=== PATIENT | male | born 1965 | race Two or more races ===

== ENCOUNTER 2024-02-20 22:45 | Emergency (ER) | payer OTHER ==
[~2024-02-20] VITALS: Ht 162.6 cm; Wt 67.1 kg
[2024-02-20] MEDS ORDERED: KETOROLAC TROMETHAMINE 30 MG INJ ONE (23:36)
[2024-02-20] MEDS ORDERED: ACETAMINOPHEN 500 MG TABLET ONE (23:36)
[2024-02-20] MEDS ORDERED: GUAIFENESIN/CODEINE 5 ML LIQUID UDC ONE (23:37)
[2024-02-20 23:40] LABS: BASOPHILS # (AUTO) 0.1 K/UL (0.0-0.2); BASOPHILS % (AUTO) 1.3 % (0.0-2.0); EOSINOPHILS % (AUTO) 0.5 % (0.0-7.0); HEMATOCRIT 44.4 % (36.7-47.1); HEMOGLOBIN 14.8 g/dL (12.5-16.3); LYMPHOCYTES # (AUTO) 0.5 K/uL (0.8-4.8); LYMPHOCYTES % (AUTO) 6.4 % (20.5-51.5); MEAN CORPUSCULAR HEMOGLOBIN 30.2 uug (23.8-33.4); MEAN CORPUSCULAR HGB CONC 33 g/dL (32.5-36.3); MEAN CORPUSCULAR VOLUME 90.3 fL (73.0-96.2); MONOCYTES # (AUTO) 0.5 K/uL (0.1-1.30); MONOCYTES % (AUTO) 5.9 % (0.0-11.0); NEUTROPHILS # (AUTO) 7.3 K/uL (1.8-8.9); NEUTROPHILS % (AUTO) 85.9 % (38.5-71.5); PLATELET COUNT (AUTO) 176 K/uL (152-348); RED BLOOD CELL COUNT(AUTO) 4.92 MIL/uL (4.06-5.63); RED CELL DISTRIBUTION WIDTH 13.3 % (12.1-16.2); WHITE BLOOD COUNT (AUTO) 8.5 K/uL (3.6-10.2)
[2024-02-20 23:42] LABS: DIFFERENTIAL COMMENT 1
[2024-02-20] MEDS: GUAIFENESIN/CODEINE 5 ML LIQUID UDC PO ONE (23:46)
[2024-02-20] MEDS: KETOROLAC TROMETHAMINE 30 MG INJ IM ONE (23:46)
[2024-02-20] MEDS: ACETAMINOPHEN 500 MG TABLET PO ONE (23:46)
[2024-02-20 23:50] LABS: CALCIUM 8.5 mg/dL (8.5-10.1); CREATININE 0.8 mg/dL (0.6-1.3); POTASSIUM 3.9 mmol/L (3.5-5.1)
[2024-02-21 00:01] LABS: ALBUMIN 3.7 g/dL (3.4-5.0); BILIRUBIN,TOTAL 0.9 mg/dL (0.2-1.0); TOTAL PROTEIN, SERUM 7.4 g/dL (6.4-8.2)
[2024-02-21 01:10] VITALS: BP 147/92; TEMP 101.2; O2SAT 98
== END 2024-02-21 01:05 | disposition home or self-care (01) ==
LOC: ER 22:47
DX: U07.1 COVID-19 (principal); J20.9 Acute bronchitis, unspecified
CPT/HCPCS: 99284; 71045; 87426; 87804 ×2; 80053; 85025; 87040 ×2; 36415; 96372; J1885; A4606; A4663; A9150